=== PATIENT | male | born 1955 | race Caucasian/White ===

== ENCOUNTER 2020-02-27 11:48 | Outpatient (CLI) | payer OTHER, SELFPAY ==
[2020-02-27 13:21] LABS: Basophils Absolute Auto 0.1 K/mm3 (0.0-0.1); Basophils Percent Auto 0.8 % (0.2-1.2); Eosinophils Absolute Auto 0.2 K/mm3 (0-0.3); Hematocrit 48.1 % (42.0-52.0); Hemoglobin 16.5 g/dL (14.0-18.0); Immature Granulocyte Absolute 0.03 K/mm3 (0.00-0.031); Immature Granulocyte Percent A 0.4 % (0-0.5); Lymphocytes Absolute Auto 1.83 K/mm3 (0.9-3.2); Lymphocytes Percent Auto 23.9 % (18.3-44.2); Mean Corpuscular HGB Conc 34.3 g/dl (32-36); Mean Corpuscular Volume 84.7 fl (80-100); Mean Platelet Volume 11.3 fl (7.4-10.4); Monocytes Absolute Auto 0.7 K/mm3 (0.1-0.6); Monocytes Percent Auto 9.3 % (2.6-8.5); Neutrophils Absolute Auto 4.9 K/mm3 (1.3-6.7); Neutrophils Percent Auto 63.6 % (45.5-73.1); Platelet Count Result 232 k/mm3 (150-375); Red Blood Count 5.68 M/mm3 (4.6-6.20); Red Cell Distribution Width 13.3 % (11.5-14.5); White Blood Count 7.7 K/mm3 (4.5-10.0)
[2020-02-27 13:30] LABS: Urine Cotinine NEGATIVE
[2020-02-27 13:31] LABS: Albumin Level 4.4 g/dL (3.5-5.1); Estimated Glomerular Filt Rate > 60; Glucose 104 mg/dL (75-110)
[2020-02-27 13:34] LABS: Hemoglobin A1C 5.3 % (<5.7)
== END 2020-02-27 11:49 | disposition home or self-care (01) ==
PROVIDERS: Visit Provider Orthopaedic Surgery
DX: Z01.812 Encounter for preprocedural laboratory examination (principal); M17.0 Bilateral primary osteoarthritis of knee
CPT/HCPCS: 80307; 82040; 82565; 82947; 83036; 85025; 87081

== ENCOUNTER 2020-03-22 00:37 | Outpatient (CLI) | payer OTHER, SELFPAY ==
[2020-03-22 18:59] LABS: SARS-CoV-2 RNA PCR Negative
== END 2020-03-22 00:38 | disposition home or self-care (01) ==
LOC: ANHCOVIDDT 00:38
PROVIDERS: Visit Provider Orthopaedic Surgery
DX: Z01.812 Encounter for preprocedural laboratory examination (principal); Z20.828 Contact with and (suspected) exposure to other viral communicable diseases
CPT/HCPCS: 87635; C9803; U0003

== ENCOUNTER 2020-03-25 01:15 | Day surgery (SDC) | payer OTHER, SELFPAY ==
[2020-02-27 12:16] VITALS: BMI 28.9
[2020-02-27 12:18] VITALS: BP 164/84; PULSE 67; RESP 16; TEMP 36.3; O2SAT 97
[2020-03-25] VITALS (13 sets, daily range): BP systolic 108–144; BP diastolic 62–82; PULSE 63–93; RESP 10–21; TEMP 36.3–36.7; O2SAT 95–99
--- NOTE | ~2020-03-25 | XR_ITS ---
EXAMINATION: XR knee RT 2V DATE: 03/25/2020 10:19 INDICATION: Postoperative evaluation following right total knee arthroplasty. TECHNIQUE: Anteroposterior and lateral views of the right knee were obtained. COMPARISON: None. FINDINGS: Right total knee arthroplasty with patellar resurfacing appears well seated and in near anatomic alig nment. No fractures identified. Expected postoperative subcutaneous and intra-articular gas. IMPRESSION: 1. Right total knee arthroplasty, negative for postoperative purposes. Reviewed, dictated and finalized at location B.
[2020-03-25] MEDS: ACETAMINOPHEN 500 MG TABLET 1000 MG PO (06:36)
[2020-03-25] MEDS: LACTATED RINGERS 1,000 ML 30 ML IV CONT ×2 (06:55→10:08)
--- NOTE | 2020-03-25 06:55 | WPDANESEPPF ---
Anes - Initial Pre Proc Eval Procedure: Operation Date: 03/25/20 07:30 Proposed Procedures p Right Total Knee Arthroplasty - Bassem Caceres MD Date/Time: 03/25/20 06:55 Surgeon: Bassem Caceres MD Pre Op Diagnosis: Right Knee OA Patient Data Age: 64 Gender: M Height: 6 ft 2 in Weight: 100.8 kg Last Vital Signs Temp 36.3 C L 03/25/20 06:21 Pulse 93 03/25/20 06:21 Resp 14 03/25/20 06:21 BP 144/82 H 03/25/20 06:21 Pulse Ox 99 03/25/20 06:21 Allergies Allergy/AdvReac Type Severity Reaction Status Date / Time No Known Allergies Allergy Verified 03/25/20 06:28 Home Medications Medication Instructions Recorded Confirmed Type atorvastatin 10 mg tablet 10 mg PO QAM 08/20/19 03/25/20 History cetirizine 10 mg capsule 10 mg PO QAM 08/20/19 03/25/20 History famotidine-Ca carb-mag hydrox 10 1 tablet PO QAM 08/20/19 03/25/20 History mg-800 mg-165 mg chewable tablet coenzyme Q10 [CoQ-10] 100 mg PO DAILY 02/27/20 03/25/20 History fluticasone propionate [Flonase 1 spray INTRANASAL DAILY PRN 02/27/20 03/25/20 History Allergy Relief] multivitamin [Multiple Vitamins] 1 tablet PO DAILY 02/27/20 03/25/20 History naproxen sodium [Aleve] 440 mg PO BID PRN 02/27/20 03/25/20 History Patient hx anesthesia problems: none Family hx anesthesia problems: none PMFSH Past Medical History Medical History Hyperlipidemia Neuropathy Osteoarthritis of both knees Surgical History Surgical History History of cataract extraction (~06/2018) History of cataract extraction (~07/2018) History of knee surgery (~1971) History of wisdom tooth extraction (~1991) Family History Family History Grandparent Lung cancer Mother Restless leg syndrome Arthritis Social History Social History Smoking status: Never smoker Additional smoking assessment comments: NO NICOTINE OF ANY KIND. Alcohol intake: current Drinks per week: 12 Substance use: former Living arrangements: with family Spiritual care concerns: No Anes - Eval Final PreProcedure Day of Procedure 03/25/20 06:55 Patient weight: overweight Heart: regular rate and rhythm Lungs: clear to auscultation Airway: Mallampati scale class II Neurological: alert and oriented Last oral intake: >/= 8 hours ASA classification: II Emergent: no Anesthetic plan: proceed Anesthesia type and monitoring: general LMA and standard monitoring Informed Consent: The patient's anesthetic plan and its attendant risks and benefits were discussed with the patient/family/POA. Questions were solicited and answers provided to the satisfaction of the patient/family/POA.
[2020-03-25] MEDS: TRANEXAMIC ACID 1,000MG/ISO100 1,000 MG/100 ML BAG 200 MG IVPB (07:00)
[2020-03-25] MEDS: KETOROLAC 15 MG/ML VIAL (*BKC) IV PUSH (07:00)
--- NOTE | 2020-03-25 07:19 | WPDHPUPDATE1 ---
History and Physical Update Update Date/Time: 03/25/20 07:19 History and Physical has been reviewed, including an updated exam of the patient. There are NO changes in the patient's condition. Risks, benefits, and alternatives have been discussed and questions answered. Patient agrees to proceed with procedure.
--- NOTE | 2020-03-25 07:20 | WPDANESPNB ---
Anes - Peripheral Nerve Block Date/Time: 03/25/20 07:20 I have discussed with the patient/family/POA the placement of a peripheral nerve block for post-operative pain management, including associated risks, benefits, complications, and side effects. Alternative methods of post-operative analgesia were detailed. Questions were solicited and answers provided to the satisfaction of the patient/family/POA. Time-Out: A pre-procedural Time-Out was completed immediately before starting the procedure and confirmed: Patient Identification, Site, Procedure, Patient Position and the Availability of Requisite Equipment. Clinical Indications: Acute post-operative pain management requested by the operative surgeon. Nerve Block Insertion Note Anes-nerve block: adductor canal right Patient position: supine Skin prep: chlorhexidine Needle: 22 gauge, stimulating, insulated echogenic needle. Needle length: 80 mm Technique: ultrasound Technique comment: mid2mg [id number] Injectate: bupivacaine 0.5% with epi 5 mcg/ml (30ml) and dexamethasone (mg) (4) Observations: tolerated well Complications: none Procedure start time:: 709 Procedure end time:: 714
[2020-03-25] MEDS: ceFAZolin 2 GM/D5W 50 ML 2 GM/50 ML BAG IVPB (07:22)
[2020-03-25] MEDS: GENTAMICIN BONE CEMENT REFOBACIN 1 EACH TOPICAL (07:39)
--- NOTE | 2020-03-25 10:28 | P.OP_ITS ---
Procedure Note - Detailed Date of procedure: 03/25/20 Pre-op diagnosis: Right Knee OA Post-op diagnosis: same Procedure performed: Total knee arthroplasty, right Description of procedure: Previous history of MCL repair. Significant osteoph ytes and contracture laterally. Valgus deformity. A very large lateral release was required. Pie crusting was performed. The popliteus was excised. Bone quality was satisfactory. External rotation was 3? based on gap balancing measurements. The distal femur was cut at 5? valgus. 3? posterior tibial slope. Implants: [place] [employer] size 7 cemented femur, size 7 cemented universal tibia, 16 mm posterior stabilized polyethylene insert, 38 mm asymmetric all poly patellar component. Anesthesia: GETA and regional (subsartorial nerve block) Surgeon: Bassem Caceres MD Estimated blood loss (mL): 200 Drains: No Complications: None Condition: stable Disposition: PACU Findings: OPERATIVE DETAILS: The patient was given a nerve block preoperatively, and then brought to the operating room. A general anesthetic was administered. The leg was prepped and draped in the usual sterile fashion. The limb was elevated and the tourniquet inflated to 300 mmHg during the exposure and cementation. No medial release was taken. The knee was then flexed. The osteophytes were carefully removed. The intramedullary guide was placed in the femoral canal. The distal femoral resection was then taken with the oscillating saw. The collateral ligaments were carefully protected. The tibia was carefully exposed. The jig was applied, and the proximal tibia was resected according to preoperative plan. The anesthetic mixture was injected into the periarticular tissues. The knee was balanced in extension, and appropriate releases were taken where needed. A large lateral release was needed. The anterior and posterior cruciate ligament and meniscal remnants were removed. The patella was measured. Patellar resection was carried out with the oscillating saw. The femur was sized and rotation assessed using a combination of gap balancing, posterior referencing, and the AP axis. The 4 in 1 cutting block was used to finish the femoral cuts after equal gaps were assured. The box cut was taken. The osteophytes were carefully removed from the back of the knee. The knee was copiously irrigated with antibiotic solution periodically throughout the procedure. The spacer block was used to confirm equal flexion and extension gaps. Further releases were performed as needed. The tibia was sized and b roached. The bony surfaces were prepared for cementing with pulsatile lavage. The real tibial component and femoral components were cemented into position. Excess cement was carefully removed. The polyethylene insert was placed. The patella component was subsequently cemented. Patellar tracking was carefully assessed. No additional releases were required. The wound was closed with #1 Vicryl suture, #2 Quill suture, 1-Wcyngx-ozu suture, and 2-0 Strata-fix suture followed by Steri-Strips. A sterile bulky dressing was applied. Meticulous hemostasis was maintained throughout the procedure. There were no complications. The patient was extubated and brought to the recovery room in stable condition after the application of sterile dressing with Ritesh bandage.
[2020-03-25] MEDS: fentaNYL CITRATE INJ (*CRX) 100 MCG/2 ML VIAL 25 MCG IV PUSH ×2 (10:32→10:48)
--- NOTE | 2020-03-25 11:05 | PC.NURSE ---
This patient, Jesús Flores, was admitted to 2 Medical Room 247-. Patient/family oriented to hospital policies and general routines including ID bracelet, bed and alarms, visiting hours, pain management, procedures, bathroom and other care routines, personal items, smoking policy, room service/diet, and visiting hours. Valuables list has been completed. Information on how to activate the Rapid Response Team has been discussed. Patient/Family are encouraged to report perceived risks to care and to ask questions if they do not understand what they are told or what they should do.
[2020-03-25] MEDS: ASPIRIN 81 MG ENTERIC TABLET PO (18:08)
[2020-03-25] MEDS: MELOXICAM 7.5 MG TABLET PO (18:08)
[2020-03-25] MEDS: DOCUSATE SODIUM 100 MG CAPSULE PO (18:10)
[2020-03-25] MEDS: SENNOSIDES 8.6 MG TABLET 17.2 MG PO (20:10)
[2020-03-26 02:13] VITALS: BP 103/61; PULSE 68; RESP 16; TEMP 36.7; O2SAT 97
[2020-03-26 04:44] VITALS: BP 111/61; PULSE 65; RESP 16; TEMP 36.6; O2SAT 97
[2020-03-26 06:03] LABS: Anion Gap 7 mmol/L (8-16); Blood Urea Nitrogen 24 mg/dL (9-20); Calcium 9.1 mg/dL (8.4-10.2); Carbon Dioxide 26 mmol/L (22-30); Chloride 105 mmol/L (98-107); Estimated CRCL calculation 77 ml/min; Estimated Glomerular Filt Rate > 60; Glucose 108 mg/dL (75-110); Sodium 138 mmol/L (137-145)
[2020-03-26 06:05] LABS: Basophils Percent Auto 0.1 % (0.2-1.2); Eosinophils Percent Auto 0.2 % (0-4.4); Hematocrit 37.2 % (42.0-52.0); Hemoglobin 12.4 g/dL (14.0-18.0); Immature Granulocyte Absolute 0.06 K/mm3 (0.00-0.031); Immature Granulocyte Percent A 0.4 % (0-0.5); Lymphocytes Absolute Auto 1.64 K/mm3 (0.9-3.2); Lymphocytes Percent Auto 10.4 % (18.3-44.2); Mean Corpuscular HGB Conc 33.3 g/dl (32-36); Mean Corpuscular Hemoglobin 28.9 pg (26-34); Mean Corpuscular Volume 86.7 fl (80-100); Monocytes Absolute Auto 1.5 K/mm3 (0.1-0.6); Monocytes Percent Auto 9.7 % (2.6-8.5); Neutrophils Absolute Auto 12.5 K/mm3 (1.3-6.7); Neutrophils Percent Auto 79.2 % (45.5-73.1); Platelet Count Result 206 k/mm3 (150-375); Red Blood Count 4.29 M/mm3 (4.6-6.20); Red Cell Distribution Width 13.2 % (11.5-14.5); White Blood Count 15.7 K/mm3 (4.5-10.0)
--- NOTE | 2020-03-26 07:55 | P.PNAN_ITS ---
Anes - Prog Note Post-Op Date/Time: 03/26/20 07:55 Cardiovascular status: normal Respiratory status: normal Airway patency: baseline Mental status: baseline Post-Op hydration status: normal Vital Signs: Last Vital Signs Temp 36.6 C 03/26/20 04:44 Pulse 65 03/26/20 04:44 Resp 16 03/26/20 04:44 BP 111/61 03/26/20 04:44 Pulse Ox 97 03/26/20 04:44 Pain Score (VAS): 0 I/O: Intake & Output 03/25/20 03/25/20 03/26/20 15:59 23:59 07:59 Intake Total 327 558 2170 Output Total 700 700 Balance 540 140 400 Laboratory Tests 03/26/20 05:05 03/26/20 05:04 03/25/20 03/26/20 03/26/20 06:41 05:04 05:05 WBC 15.7 H RBC 4.29 L Hgb 12.4 L D Hct 37.2 L MCV 86.7 MCH 28.9 MCHC 33.3 RDW 13.2 Plt Count 206 MPV 12.0 H Immature Gran % (Auto) 0.4 Neut % (Auto) 79.2 H Lymph % (Auto) 10.4 L [place] % (Auto) 9.7 H Eos % (Auto) 0.2 Baso % (Auto) 0.1 L Lymph # (Auto) 1.64 [place] # (Auto) 1.5 H Eos # (Auto) 0.0 Baso # (Auto) 0.0 Abs Immat Gran (auto) 0.06 H Absolute Neuts (auto) 12.5 H Absolute Nucleated RBC 0.0 Nucleated RBC % 0.0 Sodium 138 Potassium 4.0 Chloride 105 Carbon Dioxide 26 Anion Gap 7 L BUN 24 H Creatinine 1.00 Estim Creat Clear Calc 77 Estimated GFR > 60 Glucose 108 Calcium 9.1 Blood Type O Positive Antibody Screen Negative Post-procedural complaints: none Patient Feedback: Patient satisfied with anesthetic care.
[2020-03-26] MEDS: ASPIRIN 81 MG ENTERIC TABLET PO (08:25)
[2020-03-26] MEDS: DOCUSATE SODIUM 100 MG CAPSULE PO (08:25)
[2020-03-26] MEDS: LORATADINE 10 MG TABLET PO (08:25)
[2020-03-26] MEDS: ATORVASTATIN 10 MG TABLET PO (08:25)
[2020-03-26] MEDS: FAMOTIDINE 10 MG TABLET PO (08:26)
[2020-03-26] MEDS: MELOXICAM 7.5 MG TABLET PO (08:26)
[2020-03-26] MEDS: MULTIVITAMINS THERAPEUTIC TAB (*BKC) 1 TABLET PO (08:26)
[2020-03-26 10:00] VITALS: BP 125/54; PULSE 77; RESP 18; TEMP 36.4; O2SAT 98
[2020-03-26 14:00] VITALS: BP 129/69; PULSE 84; RESP 17; TEMP 36.5; O2SAT 99
[2020-03-26] MEDS: oxyCODONE HCL (*CRX) 5 MG TAB IR PO (14:43)
--- NOTE | 2020-03-29 10:36 | P.DS_ITS ---
DS: Admitting Diagnosis Admitting Diagnosis Admitting Diagnosis: Right Knee OA DS: Discharge Diagnosis Discharge Diagnosis (1) Osteoarthritis of both knees: Qualifiers: Osteoarthritis type: primary Qualified Code(s): M17.0 - Bilateral primary osteoarthritis of knee Code(s): M17.0 - Bilateral primary osteoarthritis of knee Status: Acute DS: Summary Hospital Course Reason for hospitalization: Total knee arthroplasty. Hospital Course: Tolerated surgery well. Progressed appropriately with therapy. Status at Discharge Functional status at discharge: uses cane/walker Overall status at discharge: patient is progressing back to baseline Time Spent with Patient Time attestation: Total time spent providing and/or coordinating discharge services: Exam Const: General: no acute distress Resp: Effort & Inspection: normal respiratory effort Skin: Other: Wound healing well. Mepilex dressing intact. No hematoma or drainage. Neuro: Motor exam (neuro): 5/5 motor strength present throughout Sensory Exam: normal sensation Psych: Mental Status: mental status grossly normal Speech and movement: Normal speech and movement present Discharge Plan Discharge Patient Disposition: Home, Self-Care Discharge Instructions: See instruction sheet. Patient Instructions: Precautions after Total Joint Replacement Surgery (DC), Knee Replacement (DC) Follow-up/Referrals: Bassem Caceres MD [Physician] - Discharge Medications: New oxycodone-acetaminophen 5-325 mg tablet 1 - 2 tablet PO Q4-6H MDD 8 tablets PRN (Reason: pain) Qty: 40 RF: 0 Continued All Day Allergy (cetirizine) 10 mg capsule 10 mg PO QAM RF: 0 atorvastatin 10 mg tablet 10 mg PO QAM RF: 0 Pepcid Complete 10-800-165 mg tablet,chewable 1 tablet PO QAM RF: 0 multivitamin [Multiple Vitamins] Tablet 1 tablet PO DAILY RF: 0 fluticasone propionate [Flonase Allergy Relief] 50 mcg/actuation [place],Suspension 1 spray INTRANASAL DAILY PRN (Reason: Congestion) RF: 0 coenzyme Q10 [CoQ-10] 100 mg Capsule 100 mg PO DAILY RF: 0 naproxen sodium [Aleve] 220 mg Capsule 440 mg PO BID PRN (Reason: Pain) RF: 0 Quality VTE Prophylaxis VTE prophylaxis: mechanical ordered (REJI philipe and SCDs)
== END 2020-03-26 14:54 | disposition home or self-care (01) ==
LOC: ANHSURGERY 06:07 → ANH2MED 11:01
PROVIDERS: Visit Provider Orthopaedic Surgery
PROC: (CPT 27447; principal; 2020-03-25 07:30)
DX: M17.11 Unilateral primary osteoarthritis, right knee (principal); G89.18 Other acute postprocedural pain; E78.5 Hyperlipidemia, unspecified; G62.9 Polyneuropathy, unspecified
CPT/HCPCS: 27447; 64447; 36415; 73560; 80048; 85025; 86850; 86900; 86901; 97110; 97116; 97161; 97165; 97530; A9270; C1713; C1776; J0131; J0171; J0690; J1100; J1885; J2250; J2270; J2405; J2704; J2795; J3010; J7120

== ENCOUNTER 2020-04-16 14:27 | Outpatient (CLI) | payer OTHER, SELFPAY ==
[2020-04-16 15:17] LABS: Basophils Absolute Auto 0.1 K/mm3 (0.0-0.1); Basophils Percent Auto 0.6 % (0.2-1.2); Eosinophils Absolute Auto 0.2 K/mm3 (0-0.3); Eosinophils Percent Auto 2.3 % (0-4.4); Hematocrit 40.6 % (42.0-52.0); Hemoglobin 13.3 g/dL (14.0-18.0); Immature Granulocyte Absolute 0.04 K/mm3 (0.00-0.031); Immature Granulocyte Percent A 0.4 % (0-0.5); Lymphocytes Absolute Auto 1.79 K/mm3 (0.9-3.2); Lymphocytes Percent Auto 19.3 % (18.3-44.2); Mean Corpuscular HGB Conc 32.8 g/dl (32-36); Mean Corpuscular Hemoglobin 28.1 pg (26-34); Mean Corpuscular Volume 85.8 fl (80-100); Mean Platelet Volume 10.3 fl (7.4-10.4); Monocytes Absolute Auto 0.8 K/mm3 (0.1-0.6); Monocytes Percent Auto 8.5 % (2.6-8.5); Neutrophils Absolute Auto 6.4 K/mm3 (1.3-6.7); Neutrophils Percent Auto 68.9 % (45.5-73.1); Platelet Count Result 377 k/mm3 (150-375); Red Blood Count 4.73 M/mm3 (4.6-6.20); Red Cell Distribution Width 13.6 % (11.5-14.5); White Blood Count 9.3 K/mm3 (4.5-10.0)
[2020-04-16 15:24] LABS: Albumin Level 4.1 g/dL (3.5-5.1)
[2020-04-16 15:25] LABS: Urine Cotinine NEGATIVE
[2020-04-16 15:27] LABS: Hemoglobin A1C 5.1 % (<5.7)
== END 2020-04-16 14:28 | disposition home or self-care (01) ==
LOC: ANHSURGERY 14:31
PROVIDERS: Visit Provider Orthopaedic Surgery
DX: M17.12 Unilateral primary osteoarthritis, left knee (principal)
CPT/HCPCS: 80307; 82040; 83036; 85025; 87081